=== PATIENT | male | born 1950 | race Caucasian/White ===

== ENCOUNTER 2017-11-12 08:33 | Day surgery (SDC) | payer MEDICARE, MEDICAID ==
[~2017-11-12] VITALS: Ht 172.7 cm; Wt 79.5 kg
[2017-11-12] MEDS ORDERED: SODIUM CHLORIDE 0.9% 1,000 ML IV SCH (09:20)
[2017-11-12 09:30] VITALS: BP 115/59
[2017-11-12] MEDS ORDERED: CEFAZOLIN PMX 1GM/50ML 50 ML IVPB ONE (09:30)
[2017-11-12] MEDS ORDERED: PLEASE ENTER HEIGHT AND WEIGHT MC SCH (09:30)
[2017-11-12] MEDS ORDERED: TURM538C PO (09:39)
[2017-11-12] MEDS ORDERED: [UNRECOGNIZED DRUG - OTHER] PO (09:39)
[2017-11-12] MEDS ORDERED: ACAI500C PO (09:39)
[2017-11-12] MEDS ORDERED: UBID10CA7 PO (09:39)
[2017-11-12] MEDS ORDERED: MAGN400T36 PO (09:39)
[2017-11-12] MEDS ORDERED: MULT-316 PO (09:40)
[2017-11-12 09:50] LABS: BASOPHILS # (AUTO) 0.03 x10^3/uL (0-0.1); BASOPHILS % (AUTO) 0 % (0-1); EOSINOPHILS % (AUTO) 6 % (1-7); LYMPHOCYTES # (AUTO) 1.92 x10^3/uL (1-3.4); LYMPHOCYTES % (AUTO) 22 % (22-44); MD NO; MEAN CORPUSCULAR HEMOGLOBIN 32.4 pg (27.5-34.5); MEAN CORPUSCULAR VOLUME 95.3 fL (81-97); MEAN PLATELET VOLUME 7.8 fL (7.4-10.4); MONOCYTES # (AUTO) 0.58 x10^3/uL (0.2-0.8); MONOCYTES % (AUTO) 7 % (2-9); NEUTROPHILS # (AUTO) 5.82 x10^3/uL (1.8-6.8); NEUTROPHILS % (AUTO) 66 % (42-75); PLATELET COUNT 349 x10^3/uL (130-400); RED BLOOD COUNT 4.57 x10^6/uL (4.38-5.82); RED CELL DISTRIBUTION WIDTH 12.9 % (9.4-14.8)
[2017-11-12 09:58] LABS: ANION GAP 5 mmol/L (5-15); CALCIUM 8.5 mg/dL (8.5-10.1); CHLORIDE 108 mmol/L (98-107); CREATININE 1.06 mg/dL (0.7-1.3)
[2017-11-12] MEDS ORDERED: FENTANYL PF 100 MCG/2ML ONE (10:16)
[2017-11-12] MEDS ORDERED: MIDAZOLAM 1 MG/ML, 2ML ONE (10:16)
[2017-11-12] MEDS ORDERED: CEFAZOLIN 1,000 MG ONE (10:16)
[2017-11-12] MEDS ORDERED: LIDOCAINE 2%, 20ML ONE (10:16)
[2017-11-12] MEDS ORDERED: CEFAZOLIN PMX 1GM/50ML 50 ML ONE (10:16)
[2017-11-12] MEDS ORDERED: DIPHENHYDRAMINE 50 MG/ML, 1ML ONE (10:51)
[2017-11-12] MEDS ORDERED: SODIUM CHLORIDE FLUSH 10ML SYR IVF SCH (21:00)
[2017-11-13] MEDS ORDERED: MAGNESIUM OXIDE 400 MG TABLET PO SCH (09:00)
== END 2017-11-12 12:32 ==
LOC: CACL 08:33
PROVIDERS: ATTEND Internal Medicine Cardiovascular Disease
DX: Z45.018 Encounter for adjustment and management of other part of cardiac pacemaker (principal); Z88.8 Allergy status to other drugs, medicaments and biological substances; Z91.013 Allergy to seafood; I10 Essential (primary) hypertension; Z91.018 Allergy to other foods
CPT/HCPCS: 33228; 36415; 80048; 85025; 93005; 99156; 99157; C1785; J0690; J1200; J2250; J3010; J3490